=== PATIENT | female | born 1975 | race African-American/Black ===

== ENCOUNTER 2019-06-10 03:34 | Emergency (ER) | payer OTHER ==
[~2019-06-10] VITALS: Ht 167.6 cm; Wt 79.8 kg
[2019-06-10 03:44] VITALS: BP 161/96
--- NOTE | 2019-06-10 03:46 | PHYS DOC ---
Adult General Chief Complaint Chief Complaint: WRIST PAIN HPI HPI Patient is a 43 year old handed female who presents with complaining of injury to right wrist. Patient states she works at [employer] and lifting boxes and while lifting 12 pack water, movement of the right wrist and felt pain in right hand w ith radiation to her wrist and forearm and rated her pain 7/10. Patient denies focal neurodeficit and other injuries. Patient was sent to ER from work place for more evaluation. Review of Systems Review of Systems Constitutional: Denies fever or chills [] Eyes: Denies change in visual acuity, redness, or eye pain [] HENT: Denies nasal congestion or sore throat [] Respiratory: Denies cough or shortness of breath [] Cardiovascular: No additional information not addressed in HPI [] GI: Denies abdominal pain, nausea, vomiting, bloody stools or diarrhea [] : Denies dysuria or hematuria [] Musculoskeletal: Denies back pain, reports joint pain [] Integument: Denies rash or skin lesions [] Neurologic: Denies headache, focal weakness or sensory changes [] Endocrine: Denies polyuria or polydipsia [] All other systems were reviewed and found to be within normal limits, except as documented in this note. Current Medications Current Medications Current Medications Medications (Trade) Dose Ordered Sig/Jean Claude Start Time Stop Time Status Last Admin Dose Admin Ibuprofen (Motrin) 800 mg 1X ONCE 06/10/19 04:00 06/10/19 04:01 DC 06/10/19 03:56 800 MG Allergies Allergies Allergies Coded Allergies Type Severity Reaction Last Updated Verified No Known Drug Allergies 06/10/19 No Physical Exam Physical Exam Constitutional: Well nourished, mild distress, non-toxic appearance. [] HENT: Normocephalic, atraumatic. Eyes: PERRLA, EOMI, conjunctiva normal, no discharge. [] Neck: Normal range of motion, no tenderness, supple, no stridor. [] Cardiovascular:Heart rate regular rhythm, no murmur [] Lungs & Thorax: Bilateral breath sounds clear to auscultation [] Extremities: Right upper extremity without deformity or edema or sign of injury, painful range of motion . Neurologic: Alert and oriented X 3, no focal deficits noted. [] Psychologic: Affect anxious, judgement normal, mood normal. [] Current Patient Data Vital Signs Vital Signs Date Time Temp Pulse Resp B/P (MAP) Pulse Ox O2 Delivery O2 Flow Rate FiO2 06/10/19 03:44 98.8 82 16 161/96 (117) 97 Room Air 98.8 EKG EKG [] Radiology/Procedures Radiology/Procedures [][facility] [address] [place] [address] IMAGING REPORT Signed PATIENT: HASMUKH RED RACCOUNT: [id number] : 1975 LOCATION: ER AGE: 43 SEX: F EXAM STATUS: DEP ER ORD. PHYSICIAN: MEMO HUDDLESTON MD REASON: injury PROCEDURE: WRIST 3V RIGHT EXAM: WRIST 3V RIGHT. HISTORY: Right wrist pain after injury. COMPARISON: None. FINDINGS: No fractures are identified. Mild radiocarpal osteoarthritis is suspected. Alignment is maintained. IMPRESSION: 1. 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 Electronically signed by: Cyril Doyle MD (06/10/2019 4:17 AM) [facility] DICTATED and SIGNED BY: DORIAN DOYLE MD DATE: 06/10/19 0417 Course & Med Decision Making Course & Med Decision Making Pertinent Imaging studies reviewed. 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 X ray did not show acute finding. Velcro splint was applied and patient was advised to follow-up with his physician. Dragon Disclaimer Dragon Disclaimer This electronic medical record was generated, in whole or in part, using a voice recognition dictation system. Departure Departure Impression: Primary Impression: Right wrist sprain Disposition: HOME, SELF-CARE (at 0 [phone]) Condition: IMPROVED Patient Instructions: Wrist Sprain with [facility] Additional Instructions: Follow-up with your primary care physician in 3-5 days Return to ER if not getting better Apply ice on your wrist Scripts Ibuprofen (IBUPROFEN) 800 Mg Tablet 800 MG PO PRN Q8HRS PRN for INFLAMMATION, #20 TAB Prov: MEMO HUDDLESTON MD 06/10/19 Problem Qualifiers Primary Impression: Right wrist sprain Encounter type: initial encounter Qualified Codes: S63.501A - Unspecified sprain of right wrist, initial encounter MEMO HUDDLESTON MD Jun 10, 2019 03:46
[2019-06-10] MEDS ORDERED: IBUPROFEN 400 MG TABLET. PO ONE (04:00)
[2019-06-10] MEDS ORDERED: IBUP-1060 PO (04:01)
--- NOTE | 2019-06-10 04:20 | RAD ---
EXAM: WRIST 3V RIGHT. HISTORY: Right wrist pain after injury. COMPARISON: None. FINDINGS: No fractures are identified. Mild radiocarpal osteoarthritis is suspected. Alignment is maintained. IMPRESSION: 1. 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 Electronically signed by: Cyril Doyle MD (06/10/2019 4:17 AM) [facility]
== END 2019-06-10 04:10 | disposition home or self-care (01) ==
LOC: ER 03:34
DX: S63.501A Unspecified sprain of right wrist, initial encounter (principal); X50.9XXA Other and unspecified overexertion or strenuous movements or postures, initial encounter; Y93.89 Activity, other specified; Y92.69 Other specified industrial and construction area as the place of occurrence of the external cause; Y99.0 Civilian activity done for income or pay
CPT/HCPCS: 29125; 73110; 99284